=== PATIENT | female | born 1955 ===

== ENCOUNTER 2021-10-07 17:39 | Observation (INO) | payer MEDICARE ==
[~2021-10-07] VITALS: Ht 154.9 cm; Wt 105.5 kg
[2021-10-07 20:13] LABS: INR 1.5 (0.8-3.0); PROTHROMBIN TIME 16.6 SECONDS (9.7-12.8)
[2021-10-07 20:20] LABS: ALBUMIN 3.4 gm/dL (3.4-4.8); BILIRUBIN,TOTAL 1.9 mg/dL (0.2-1.2); CALCIUM 8.6 mg/dL (8.4-10.2); CREATININE, serum 1.37 mg/dL (0.57-1.11); POTASSIUM 4.2 mmol/L (3.5-4.5); TOTAL PROTEIN 6.2 gm/dL (6.2-8.1)
[2021-10-07 20:35] LABS: TROPONIN-I 0.155 ng/mL (0.00-0.033)
[2021-10-07 21:21] LABS: BASO % 0.5 % (0.0-2.0); EOS # 0.1 K/mm3 (0.0-0.7); EOS % 0.8 % (0-4.0); GRAN # 5.1 K/mm3 (1.4-6.5); GRAN % 68.9 % (42.2-75.2); HEMATOCRIT 44.7 % (37.0-47.0); HEMOGLOBIN 14.6 g/dl (12.5-16.0); LYMPH # 1.6 K/mm3 (1.2-3.4); LYMPH % 21.8 % (20.0-51.0); MEAN CELL VOLUME 90 fl (80.0-100.0); MEAN CORPUSCULAR HEMOGLOBIN 29 pg (27.0-31.0); MEAN CORPUSCULAR HGB CONC 33 g/dl (33.0-37.0); MEAN PLATELET VOLUME 11.3 fl (7.4-10.4); MONO # 0.6 K/mm3 (0.1-0.6); MONO % 7.7 % (1.7-9.3); PLATELET COUNT 157 K/mm3 (130-400); RED BLOOD COUNT 4.97 M/mm3 (4.10-5.30); REDCELL DISTRIBUTION WIDTH-CV 14.4 % (11.5-14.5)
[2021-10-07] MEDS ORDERED: ZYLOPRIM 300MG300 MG PO (23:27)
[2021-10-07] MEDS ORDERED: ASPIRIN 81M81 MG/TA2 PO (23:27)
[2021-10-07] MEDS ORDERED: PLAVIX 75MG TAB75 MG PO (23:28)
[2021-10-07] MEDS ORDERED: LIPITOR 40MG TA40 MG PO (23:28)
[2021-10-07] MEDS ORDERED: GLUCOPHAGE1000 MG PO (23:30)
[2021-10-07] MEDS ORDERED: PRINIVIL20 MG PO (23:30)
[2021-10-07] MEDS ORDERED: TOPROL XL 25MG25 MG PO (23:31)
[2021-10-08] VITALS (12 sets, daily range): BP systolic 116–158; BP diastolic 44–104; PULSE 67–95
[2021-10-08 11:57] LABS: BASO % 0.6 % (0.0-2.0); EOS # 0.1 K/mm3 (0.0-0.7); EOS % 0.9 % (0-4.0); GRAN # 4.7 K/mm3 (1.4-6.5); HEMOGLOBIN 14.9 g/dl (12.5-16.0); LYMPH # 1.7 K/mm3 (1.2-3.4); LYMPH % 24.4 % (20.0-51.0); MEAN CELL VOLUME 92 fl (80.0-100.0); MEAN CORPUSCULAR HEMOGLOBIN 30 pg (27.0-31.0); MEAN CORPUSCULAR HGB CONC 33 g/dl (33.0-37.0); MEAN PLATELET VOLUME 10.6 fl (7.4-10.4); MONO # 0.5 K/mm3 (0.1-0.6); PLATELET COUNT 147 K/mm3 (130-400); RED BLOOD COUNT 4.92 M/mm3 (4.10-5.30); REDCELL DISTRIBUTION WIDTH-CV 14.3 % (11.5-14.5)
[2021-10-08 12:06] LABS: CALCIUM 8.9 mg/dL (8.4-10.2); CREATININE, serum 1.11 mg/dL (0.57-1.11); POTASSIUM 3.7 mmol/L (3.5-4.5)
[2021-10-08 12:12] LABS: INR 1.5 (0.8-3.0); PARTIAL THROMBOPLASTIN TIME 84.4 SECONDS (26.0-37.0); PROTHROMBIN TIME 16.8 SECONDS (9.7-12.8)
--- NOTE | 2021-10-08 13:33 | NUR ---
SEE MERGE FOR ALL MEDICATION ADMINISTRATION TIMES, INTRA AND POST SEDATION ASSESSMENTS
--- NOTE | 2021-10-08 18:00 | NUR ---
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 Upon initial assessment, radial compression band in place with 14 ml of air. No bleeding noted. Area soft, no hematoma noted. VSS. Patient denied any pain. Dynamap in use. Normal S1 and S2 sounds present. Radial pulses +2 bilaterally. Pedal pulses +1 bilaterally. Bowel sounds present in all four quadrants. Lungs clear to auscultation. Patient A&O. Diet advanced with no issues. Scaling and flaking noted on heels. +2 edema noted on bilateral lower extremeties. Patient denies any further needs at this time. Call light in reach.
--- NOTE | 2021-10-08 19:27 | NUR ---
PATIENT TOOK BP CUFF OFF TO GO TO THE BATHROOM.
--- NOTE | 2021-10-08 19:29 | NUR ---
PATIENT TOOK BP CUFF OFF TO USE THE RESTROOM.
--- NOTE | 2021-10-08 20:00 | NUR ---
Daughter called for update on patient- gave patient code. Updates given of events for the day.
--- NOTE | 2021-10-08 22:00 | NUR ---
ASSESSMENT COMPLETE. PT COOPERATIVE WITH CARES. PT SITTING UP IN BED. PT STATES SHE SITS UP WHEN SHE FEELS LIKE SHE HAS SOB. I ASKED IF SHE WAS STILL HAVING SOB. PT STATED NO, THAT THE SYMPTOMS RESOLVE QUICKLY, WHEN SHE SITS UP. PT DENIES PAIN, PALPITATIONS, SOB (AT THIS TIME) OR DIZZINESS. PT STATES SHE HAS NO OTHER NEEDS AT THIS TIME. CALL LIGHT WITHIN REACH.
[2021-10-09 04:00] VITALS: BP 129/89; PULSE 88; TEMP 97.8
[2021-10-09 04:13] VITALS: BP 129/89; BP 148/101; PULSE 81; TEMP 97.5
--- NOTE | 2021-10-09 06:07 | NUR ---
PT RESTING PARTIALLY UPRIGHT IN BED (HEAD OF BED RISED ALMOST 90 DEGREES AT PT'S REQUEST). PT HAD AN OTHERWISE UNEVENTFUL NIGHT. PT DENIES PAIN, PALPITATTION, OR DIZZINESS. PT STATES SHE HAS NO THOSE NEEDS AT THIS TIME. CALL LIGHT WITHIN REACH.
[2021-10-09 07:15] LABS: HEMATOCRIT 41.9 % (37.0-47.0); HEMOGLOBIN 13.8 g/dl (12.5-16.0); MEAN CELL VOLUME 89 fl (80.0-100.0); MEAN CORPUSCULAR HEMOGLOBIN 29 pg (27.0-31.0); MEAN CORPUSCULAR HGB CONC 33 g/dl (33.0-37.0); MEAN PLATELET VOLUME 11.1 fl (7.4-10.4); PLATELET COUNT 130 K/mm3 (130-400); RED BLOOD COUNT 4.71 M/mm3 (4.10-5.30); REDCELL DISTRIBUTION WIDTH-CV 14.4 % (11.5-14.5)
[2021-10-09 07:29] LABS: CALCIUM 8.7 mg/dL (8.4-10.2); CHOLESTEROL RISK RATIO 3.8; CREATININE, serum 1.02 mg/dL (0.57-1.11); POTASSIUM 3.1 mmol/L (3.5-4.5)
[2021-10-09 08:02] VITALS: BP 145/100; PULSE 48; TEMP 97.9
--- NOTE | 2021-10-09 10:12 | NUR ---
PT SITTING UP IN BED EATING BREAKFAST. MORNING MEDICATIONS GIVEN. FLU VACCINE ADMINISTERED. SHIFT ASSESSMENT COMPLETED. PT DENIES ANY PAIN OR NEEDS AT THIS TIME. R RADIAL SITE HAS NO SWELLING OR BRUISING, BANDAID IN PLACE. WILL CONTINUE TO MONITOR.
[2021-10-09 11:34] VITALS: BP 116/79; PULSE 77; TEMP 98
[2021-10-09 16:00] VITALS: BP 112/76; PULSE 78; TEMP 98.5
--- NOTE | 2021-10-09 16:14 | NUR ---
SW met with the patient to discuss discharge plan. The patient lives in [place] with her (Gigi, "Sofi"), daughter (Qi Fraser, ph#[phone]), son-in-law, and two grandchildren. She reports independence with ADLs and has a cane and crutches available, when needed. The patient's PCP is Dr. Anurag Crowe and she receives her medications from [facility] in . She reports occasional difficulties affording her meds. She showed SW her [employer] cards that she utilizes. The patient does not have a DPOA-HC. The patient plans to return home with her family upon discharge. No additional needs at this time. *Discharge plan: home with family*
--- NOTE | 2021-10-09 18:19 | NUR ---
PERSON WHO FITS PT'S WITH [employer] CONTACTED THIS RN. NOTIFIED THAT HE WOULD BE HERE 10/10 AT [phone] TO FIT PT. WILL PASS ALONG.
[2021-10-09 21:05] VITALS: BP 138/99; PULSE 77; TEMP 97.6
--- NOTE | 2021-10-09 21:30 | NUR ---
ASSESSMENT COMPLETE. PT COOPERATIVE WITH CARES. PT RESTING IN BED NAPPING. PT DENIES PAIN, PALPITATIONS, SOB OR DIZZINESS. PT HOPEFULL OF GOING HOME TOMORROW. PT STATES SHE HAS NO OTHER NEEDS AT THIS TIME. CALL LIGHT WITHIN REACH.
[2021-10-10 00:51] VITALS: BP 136/82; PULSE 93; TEMP 98.9
[2021-10-10 05:47] VITALS: BP 150/75; PULSE 75; TEMP 97.4
--- NOTE | 2021-10-10 06:18 | NUR ---
PT ASLEEP IN BED. PT HAD AN UNEVENTFUL NIGHT. 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 CALL LIGHT WITHIN REACH.
[2021-10-10 07:47] LABS: BASO % 0.6 % (0.0-2.0); EOS # 0.1 K/mm3 (0.0-0.7); EOS % 2.5 % (0-4.0); GRAN # 2.5 K/mm3 (1.4-6.5); GRAN % 51.9 % (42.2-75.2); HEMATOCRIT 42.3 % (37.0-47.0); HEMOGLOBIN 14.1 g/dl (12.5-16.0); LYMPH # 1.6 K/mm3 (1.2-3.4); LYMPH % 33.8 % (20.0-51.0); MEAN CELL VOLUME 89 fl (80.0-100.0); MEAN CORPUSCULAR HEMOGLOBIN 30 pg (27.0-31.0); MEAN CORPUSCULAR HGB CONC 33 g/dl (33.0-37.0); MONO # 0.5 K/mm3 (0.1-0.6); PLATELET COUNT 132 K/mm3 (130-400); RED BLOOD COUNT 4.76 M/mm3 (4.10-5.30); REDCELL DISTRIBUTION WIDTH-CV 14.6 % (11.5-14.5)
[2021-10-10 08:00] LABS: CALCIUM 9.2 mg/dL (8.4-10.2); CREATININE, serum 1.14 mg/dL (0.57-1.11); POTASSIUM 3.6 mmol/L (3.5-4.5)
[2021-10-10 08:46] VITALS: BP 146/81; PULSE 79; TEMP 97.9
[2021-10-10] MEDS ORDERED: TOPROL XL 50MG50 MG PO (11:33)
[2021-10-10] MEDS ORDERED: LASIX 20MG TABL20 MG PO (11:34)
[2021-10-10] MEDS ORDERED: ALDACTONE 25MG25 M1 PO (11:34)
[2021-10-10 12:23] VITALS: BP 141/88; PULSE 71; TEMP 97.7
--- NOTE | 2021-10-10 15:19 | NUR ---
PT MET CRITERIA FOR DISCHARGE. PT FITTED FOR [employer] AND UNDERSTANDS SHE NEEDS TO WEAR THE DEVICE CONTINUOUSLY. IV REMOVED WITH NO COMPLICATIONS, CATHETER INTACT. DISCHARGE INSTRUCTIONS GIVEN, PT VERBALIZED UNDERSTANDING. PT AWARE OF F/U APPTS AND OF PRESCRIPTIONS TO HEAD TRIMMER. PT DC TO HOME VIA WHEELCHAIR ACCOMPANIED BY PULLER OUT.
== END 2021-10-10 15:21 | disposition home health service (06) ==
LOC: COL.ER 17:39 → MEDICAL 10-08 15:00
PROVIDERS: Family Medicine; Nurse Practitioner; Physician Assistant; Student in an Organized Health Care Education/Training Program; ADMIT Internal Medicine
DX: I21.4 Non-ST elevation (NSTEMI) myocardial infarction (principal); I25.10 Atherosclerotic heart disease of native coronary artery without angina pectoris; I13.0 Hypertensive heart and chronic kidney disease with heart failure and stage 1 through stage 4 chronic kidney disease, or unspecified chronic kidney disease; I50.20 Unspecified systolic (congestive) heart failure; N18.9 Chronic kidney disease, unspecified; E11.22 Type 2 diabetes mellitus with diabetic chronic kidney disease; E78.5 Hyperlipidemia, unspecified; M10.9 Gout, unspecified; E87.6 Hypokalemia; I08.1 Rheumatic disorders of both mitral and tricuspid valves; E66.9 Obesity, unspecified; Z79.84 Long term (current) use of oral hypoglycemic drugs; Z79.02 Long term (current) use of antithrombotics/antiplatelets; Z79.899 Other long term (current) drug therapy; Z79.82 Long term (current) use of aspirin
CPT/HCPCS: 99232-AI; G0378; J1644; J1650; J1815; J1940; J3475